=== PATIENT | male | born 1985 | race Caucasian/White ===

== ENCOUNTER 2024-02-08 04:20 | Emergency (ER) | payer OTHER, SELFPAY ==
--- NOTE | ~2024-02-08 | CT_ITS ---
EXAMINATION: CT brain wo con DATE: 02/08/2024 04:55 INDICATION: Fall with loss of consciousness TECHNIQUE: Computed tomography (CT) of the head was performed without intravenous contrast. Sagittal and coronal reconstructions were performed. The mA was adjusted according to patient size. Iterative reconstruction technique was employed. The dose-length product was 436.35 mGy-cm. COMPARISON: None FINDINGS: Small scalp hematoma posterior to the vertex. No fracture. No acute intracranial hemorrhage, acute in farction or abnormal extra axial fluid collection. Ventricles are normal and symmetric. No mass/mass effect. The orbits, paranasal sinuses and mastoid air cells are normal. IMPRESSION: 1. No fracture or acute intracranial process. Reviewed, dictated and finalized at location A.
--- NOTE | ~2024-02-08 | CT_ITS ---
EXAMINATION: CT cervical spine wo con DATE: 02/08/2024 04:55 INDICATION: Fall with head injury and loss of consciousness TECHNIQUE: Computed tomography (CT) of the cervical spine was performed without intravenous contrast. Automated exposure control and iterative reconstruction technique were employed. The dose-length pro duct was 436.35 mGy-cm. COMPARISON: None FINDINGS: Mild cervicothoracic levocurvature. There is also mild reversal of the normal cervical lordosis. [employer] shun appearing mild anterior vertebral body height loss at C6. Remaining vertebral body heights are no rmal. No acute fracture. Mild right-sided disc height loss at C5-C6 and C6-C7. 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 No cervical central canal or neural foraminal stenosis. Ce rvical soft tissues are unremarkable. Visualized apices of lungs are clear.. IMPRESSION: 1. Chronic appearing mild anterior vertebral body height loss at C6. No acute osseous abnormality. 2. Mild cervicothoracic levocurvature, mild reversal of the normal cervical lordosis and mild spondyl osis. Reviewed, dictated and finalized at location A. IMPRESSION: 1. Chronic appearing mild anterior vertebral body height loss at C6. No acute o sseous abnormality. 2. Mild cervicothoracic levocurvature, mild reversal of the normal cervical lottie dosis and mild spondylosis.
[2024-02-08 04:21] VITALS: BP 151/90; PULSE 96; RESP 20; TEMP 36.8; O2SAT 95
[2024-02-08 04:30] VITALS: PULSE 89; RESP 17; O2SAT 94
[2024-02-08 04:32] VITALS: BP 144/83; PULSE 88; RESP 19; O2SAT 94
[2024-02-08 04:33] VITALS: PULSE 113; RESP 13; O2SAT 98
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
== END 2024-02-08 06:58 | disposition home or self-care (01) ==
LOC: ANHED 06:23
PROVIDERS: Emergency Provider Emergency Medicine
DX: S06.0X0A Concussion without loss of consciousness, initial encounter (principal); W01.0XXA Fall on same level from slipping, tripping and stumbling without subsequent striking against object, initial encounter
CPT/HCPCS: 70450; 72125; 99284